=== PATIENT | female | born 1995 | race Two or more races ===

== ENCOUNTER 2017-07-05 18:34 | Emergency (ER) | payer OTHER ==
[~2017-07-05] VITALS: Ht 170.2 cm; Wt 68.0 kg
[~2017-07-05 18:34] MED LIST: LAMICTAL25 MG; LEXAPRO20 MG; RISPERDAL0.5 MG
== END 2017-07-05 21:52 | disposition home or self-care (01) ==
LOC: ER 18:34
DX: J02.9 Acute pharyngitis, unspecified (principal)

== ENCOUNTER → 2017-09-28 | Outpatient (CLI) | payer OTHER | END | disposition home or self-care (01) | LOC: PPHC 14:58 | DX: N64.4 Mastodynia (principal) ==

== ENCOUNTER → 2017-11-01 | Emergency (ER) | payer OTHER ==
[~2017-11-01] VITALS: Ht 167.6 cm; Wt 68.0 kg
[~2017-11-01] MED LIST changes: +AMOX-CLAV 875-1 EACH PO; +KETO10TA2 PO
== END | disposition home or self-care (01) ==
LOC: ER 20:04
DX: J03.80 Acute tonsillitis due to other specified organisms (principal)

== ENCOUNTER 2017-11-03 11:43 | Outpatient (CLI) | payer OTHER | END 2017-11-03 11:49 | disposition home or self-care (01) | LOC: LAB 11:43 | DX: Z00.01 Encounter for general adult medical examination with abnormal findings (principal); J03.00 Acute streptococcal tonsillitis, unspecified ==

== ENCOUNTER → 2017-11-06 08:50 | Outpatient (CLI) | payer OTHER | END | disposition home or self-care (01) | LOC: LAB 08:50 | DX: B27.90 Infectious mononucleosis, unspecified without complication (principal) ==

== ENCOUNTER 2017-11-19 12:29 | Outpatient (CLI) | payer OTHER | END 2017-11-19 12:35 | disposition home or self-care (01) | LOC: SONOGRAMA 12:29 → MAMO-SONO 12:45 | DX: R22.1 Localized swelling, mass and lump, neck (principal) ==

== ENCOUNTER → 2018-12-27 | Outpatient (CLI) | payer OTHER | END | disposition home or self-care (01) | LOC: TOM 09:11 | DX: I71.9 Aortic aneurysm of unspecified site, without rupture (principal) | CPT/HCPCS: 71275; 74175 ==

== ENCOUNTER → 2019-05-05 | Outpatient (CLI) | payer OTHER | END | disposition home or self-care (01) | LOC: SONOGRAMA 08:12 → MAMO-SONO 08:45 | DX: R10.2 Pelvic and perineal pain (principal) ==

== ENCOUNTER 2019-09-28 14:37 | Outpatient (CLI) | payer OTHER | END 2019-09-28 14:38 | disposition home or self-care (01) | LOC: RAD 14:37 | DX: R05 Cough (principal) ==

== ENCOUNTER 2020-04-26 18:14 | Emergency (ER) | payer OTHER ==
[~2020-04-26] VITALS: Ht 170.2 cm; Wt 68.0 kg
[2020-04-26] MEDS ORDERED: CANABIS MEDICINAL (18:30)
== END 2020-04-26 21:10 | disposition home or self-care (01) ==
LOC: ER 18:14
DX: S80.02XA Contusion of left knee, initial encounter (principal); W18.09XA Striking against other object with subsequent fall, initial encounter; Y93.89 Activity, other specified; Y92.018 Other place in single-family (private) house as the place of occurrence of the external cause; Y99.8 Other external cause status

== ENCOUNTER 2020-04-28 16:54 | Emergency (ER) | payer OTHER ==
[~2020-04-28] VITALS: Ht 170.2 cm; Wt 68.0 kg
[~2020-04-28 16:54] MED LIST changes: +CANABIS MEDICINAL
== END 2020-04-28 22:24 | disposition home or self-care (01) ==
LOC: ER 16:54 → CPU-OBS 16:55 → ER 16:55
DX: R00.0 Tachycardia, unspecified (principal); F12.929 Cannabis use, unspecified with intoxication, unspecified; E86.0 Dehydration; F41.8 Other specified anxiety disorders
CPT/HCPCS: G0378; G0379; 93005

== ENCOUNTER 2020-05-18 00:14 | Inpatient (IN) | payer OTHER ==
[~2020-05-18] VITALS: Ht 165.1 cm; Wt 74.8 kg
--- NOTE | 2020-05-18 00:46 | NUR ---
SE RECIBE PTE ALERTA Y ORIENTADA POR TORI. PTE TREFIERE PRESENTAR PALPITACIONES DESDE HACE EDE HORA. PTE INDICA EUGENE PRESENTADO PALPITACIONES ANTERIORMENTE. SE COLOCA A PTE EN AREA DE OBSERVACION, EN MAYE, TIEN PTE INDICA NO QUERER ACOSTARSE Y INDICA QUERER ESTAR EN PACILLO.
--- NOTE | 2020-05-18 02:03 | NUR ---
EVALUA PTE. SE EDUCA A PTE SOBRE TX MEDICO. PTE REFIERE COMPRENDER. SE COLECTAN MUESTRAS DE LABORATORIO BAJO MEDIDAS ASEPTICAS Y SE ENVIAN AL LABORATORIO. SE ADMINISTRA MEDICAMENTO PEPE ORDEN MEDICA. SE UBICA A PTE EN CAMA CON BARANDAS ELEVADAS POR SEGURIDAD Y SE CONECTA A MONITOR CARDIACO. SE MANTIENE EN OBSERVACION POR CAMBIOS EN CONDICION MEDICA.
--- NOTE | 2020-05-18 03:14 | NUR ---
PACIENTE ALERTA Y ORIENTADA X3. EN CAMA #18 CON BARANDAS ELEVADAS EN UNIDAD DE DOLOR DE PECHO. CONECTADA A MONITOR CARDIACO PRESENTANDO PREMATUROS. DR. FINNE EVALUO EKG Y REFIERE CONTINUAR BAJO OBSERVACION AL MOMENTO. H/L PATENTE Y DEVON DE EDEMA Y ERITEMA.
--- NOTE | 2020-05-18 04:20 | NUR ---
PACIENTE REFIRIO QUE CONTINUABA SINTIENDO LAS PALPITACIONES DORA. DR. GUALLPA EVALUO A PACIENTE Y TRAZADO DEL MONITOR CARDIACO. MEDICO ORDENO ADMINISTRAR JAMEEL DE AMIODARONE 150MG IV STAT. SE ORIENTO A PACIENTE SOBRE TX A RECIBIR Y REFIRIO ENTENDER. SE ADMINISTRO MEDICAMENTO ORDENADO POR MD. SE MANTIEN EBAJO OBSERVACION POR CAMBIOS SIGNIFICATIVOS.
--- NOTE | 2020-05-18 04:59 | NUR ---
LUEGO DE TERMINAR EL JAMEEL DE AMIODARONE 150MG IV SE REALIZO EKG Y SE PRESENTO A DR. GUALLPA. MEDICO ORDENA COMENZAR A PACIENTE EN DRIP DE AMIODARONE.
--- NOTE | 2020-05-18 05:00 | NUR ---
SE COMIENZA A BAJAR DRIP CARDIACO NEXTERONE 360MG/200ML A BAJAR A 33ML/HR. SE MANTIENEBAJO OBSERVACION POR CAMBIOS SIGNIFICATIVOS.
--- NOTE | 2020-05-18 06:25 | NUR ---
PACIENTE CONSULTADA CON RR. KHANG [place].
--- NOTE | 2020-05-18 07:58 | NUR ---
SE RECIBE PTE FEMENIA DE 24 YRS ALERTA CONCIENTE Y TRANQUILA EN CAMA EN LA UNIDADA DE CHEST PAIN POR FIBRILACION Y PALPITACIONES. PTE CONECTADA A MONITOR CARDIACO Y OXIMETRIA. PTE BAJANDO DRIP DE AMIODARONE 360/20ML BAJANDO A 33 ML HRS THEN A LAS 6 HRS COMENZAR A BAJAR A 16 ML X 12 HRS. PTE AL MOENTO SE MANTIENE ESTABEL DEVON DE DOLOR DESCANZANDO EN ESPERA DE MEDICO CONSULTOR EL KHANG NOBLE SE LE AMARILYS S/V LA CUAL SE DOCUMENTA. SE OBSERVA POR CAMBIOS EN VELEZ CONDICION.
== END 2020-05-19 16:47 | disposition home or self-care (01) | DRG 310 ==
LOC: ER 00:14 → MEDJ 10:56
PROVIDERS: ADMIT Internal Medicine; ATTEND Internal Medicine
PROC: B24BZZZ Ultrasonography of Heart with Aorta (ICD-10-PCS; principal; 2020-05-18)
DX: I47.1 Supraventricular tachycardia (principal); I49.1 Atrial premature depolarization; F60.3 Borderline personality disorder; R00.2 Palpitations; Z20.828 Contact with and (suspected) exposure to other viral communicable diseases

== ENCOUNTER 2020-09-04 05:10 | Emergency (ER) | payer OTHER ==
[~2020-09-04] VITALS: Ht 170.2 cm; Wt 68.0 kg
[2020-09-04] MEDS ORDERED: INDERAL XL80 MG PO (05:24)
== END 2020-09-04 07:48 | disposition home or self-care (01) ==
LOC: ER 05:10
DX: R10.32 Left lower quadrant pain (principal)

== ENCOUNTER 2021-04-18 18:31 | Emergency (ER) | payer OTHER ==
[~2021-04-18] VITALS: Ht 170.2 cm; Wt 68.0 kg
[~2021-04-18 18:31] MED LIST changes: +INDERAL XL80 MG PO
== END 2021-04-18 22:52 | disposition home or self-care (01) ==
LOC: ER 18:31
DX: S60.571A Other superficial bite of hand of right hand, initial encounter (principal); W55.01XA Bitten by cat, initial encounter; Y93.89 Activity, other specified; Y92.018 Other place in single-family (private) house as the place of occurrence of the external cause; Y99.8 Other external cause status